=== PATIENT | male | born 1990 | race Hispanic/Latino ===

== ENCOUNTER 2025-01-14 06:16 | Emergency (ER) | payer BC ==
[~2025-01-14] VITALS: Ht 182.9 cm; Wt 88.9 kg
--- NOTE | 2025-01-14 06:37 | ERN ---
ED Note History of Present Illness Stated Complaint: C/O ABSCESS TO LEFT ANKLE; Chief Complaint: Abscess Time Seen by MD: 06:21 Dictation: This is a 34-year-old male who presented to the emergency room complaining of possible abscess to his left ankle. Apparently he had extensive surgery to the left lower leg and has screws and rods which were done in 2004, he stated that on the medial aspect of the left ankle he started developing a little bump and he was concerned that he has screws maybe projecting from his previous surgery periodically he indicated that there would be swelling and some discomfort intermittently. However today he started seeing yellowish pus coming out of the medial area and he was concerned and came into the ER for further evaluation. He has not documented fever but he has woken up sweaty as he described Temperature 99.3 pulse 84 respirations 20 blood pressure 131/83 with a pulse oximetry of 99% on room air Allergies: Coded Allergies: amoxicillin (Unverified Allergy, Unknown, 01/14/25) Past Medical History Past Medical History: No Pertinent History Surgical History: Other Surgical History Other: LEFT ANKLE SX Family History: Negative RN Note Reviewed/Agreed w/PFSH: Yes Review of System Dictation Constitutional: Negative for fever,chills, and weight loss positive for subjective fevers Eyes: Negative for injury, pain,redness, and discharge ENT: Negative for injury,pain or swelling Cardiovascular: Negative for chest pain, palpitations, and edema Respiratory: Negative for shortness of breath, cough, and wheezing, Abdomen/GI: Negative for abdominal pain, nausea, vomiting, diarrhea, and constipation Back: Negative for injury and pain : Negative for injury, bleeding and discharge MS/Extremity: Negative for injury and deformity a small bump and swelling on the medial side of the left ankle Skin: Negative for rash, and discoloration Neuro: Negative for headache, weakness, numbness, tingling, and seizure Psych: Negative for suicide ideation, homicidal ideation, and hallucinations Initial Vital Sign VS Vital Signs Date Time Temp Pulse Resp B/P (MAP) Pulse Ox O2 Delivery O2 Flow Rate FiO2 01/14/25 06:20 99.3 84 20 131/83 99 Room Air 01/14/25 06:35 0 21 Physical Exam Dictation General: awake, alert, NAD Head/Face: Normocephalic, atraumatic Eyes: PERRL, EOMI, vision at baseline ENT: oral cavity clear, TMs clear, no signs of infection Neck: Trachea midline, supple, no nuchal rigidity Cardiovascular: RRR, normal S1/S2, No MRGs, no JVD Respiratory: CTAB, no respiratory distress, No rales or wheezes Abdomen: Soft, non-tender, non-distended, normal bowel sounds, no guarding or rebound. Skin: Warm, dry, normal turgor, no rash MS/Extremity: Pulses equal, no cyanosis, neurovascular intact, FROM, left ankle medial aspect right above the medial malleolus there is a hyperpigmented area which is indurated round about 1 in x 1 in with surrounding hyperpigmented with purulent drainage. I do not appreciate any metallic prosthesis projecting externally. Neuro: COAx4, GCS 15, strength 5/5, CN 2-12 intact, normal cerebellar exam, normal gait, Psych: Normal behavior, mood, and affect normal Extremities-trace edema without any palpable cords, Homans sign is negative Results (Laboratory/Radiology) Laboratory/Radiology Laboratory Tests Test 01/14/25 06:45 White Blood Count 11.2 K/uL (4.8-10.8) H Red Blood Count 4.82 MIL/uL (4.50-6.20) Hemoglobin 12.8 g/dL (14.0-18.0) L Hematocrit 39.2 % (42-54) L Mean Corpuscular Volume 81.3 fL (79-99) Mean Corpuscular Hemoglobin 26.6 pg (27.0-33.0) L Mean Corpuscular Hemoglobin Concent 32.7 g/dL (32.0-36.0) Red Cell Distribution Width 12.5 % (11.0-15.5) Platelet Count 490 K/uL (130-400) H Mean Platelet Volume 10.6 fL (7.5-10.5) H Immature Granulocyte % (Auto) 0.4 % (0-1) Neutrophils (%) (Auto) 47.9 % (40.0-77.0) Lymphocytes (%) (Auto) 39.4 % (21.0-51.0) Monocytes (%) (Auto) 6.9 % (3.0-13.0) Eosinophils (%) (Auto) 5.0 % (0.0-8.0) Basophils (%) (Auto) 0.4 % (0.0-5.0) Neutrophils # (Auto) 5.4 K/uL (1.8-7.7) Lymphocytes # (Auto) 4.4 K/uL (1.0-4.8) Monocytes # (Auto) 0.8 K/uL (0.1-1.0) Eosinophils # (Auto) 0.56 K/uL (0.00-0.70) Basophils # (Auto) 0.05 K/uL (0.00-0.20) Absolute Immature Granulocyte (auto 0.04 K/uL (0-1) Nucleated Red Blood Cells 0.0 % (0.0-0.19) Sodium Level 140 mmol/L (136-145) Potassium Level 3.7 mmol/L (3.5-5.1) Chloride Level 103 mmol/L (101-111) Carbon Dioxide Level 27 mmol/L (21-32) Blood Urea Nitrogen 16 mg/dL (7-18) Creatinine 1.0 mg/dL (0.5-1.3) Glomerular Filtration Rate Calc 101 mL/min (>90) Random Glucose 91 mg/dL (70-105) Total Calcium 9.2 mg/dL (8.5-10.1) Labs Reviewed?: Yes ED Course ED Course Orders Procedure Category Date Status Time Cbc With Differential LAB 01/14/25 Complete 06:32 Basic Metabolic Panel LAB 01/14/25 Complete 06:32 Ankle Comp 3vws Lt RAD 01/14/25 Resulted 06:32 Vital Signs Date Time Temp Pulse Resp B/P (MAP) Pulse Ox O2 Delivery O2 Flow Rate FiO2 01/14/25 07:48 98.8 67 18 125/75 99 Room Air* 0 21 01/14/25 06:35 99.1 88 18 122/56 99 Room Air* 0 21 01/14/25 06:20 99.3 84 20 131/83 99 Room Air We will perform diagnostic labs, advanced imaging and administer medications according to the patient's complaint. Once the results are available, will review and personally interpreted the labs to rule out any acute life- threatening emergency the trach require immediate intervention and treatment. I will then re-evaluate the patient after treatment and diagnostic exams have return to determine whether the patient requires any further testing, can safely be discharged home or need further admission to hospital for additional treatment and evaluation. Medical Decision Making MDM CC; left ankle pain Historian: Patient Comorbidities: None Limitations by social determinants of health: None Differential diagnosis: Hardware displacement, infection, other Vital signs are stable White count shows 11 K, no shift no bands otherwise labs stable X-ray shows hardware intact On clinical exam they hardware appears to be rubbing against the skin. There was no obvious exposed hardware. Mild drainage no purulence no exposed calderon rdware. Neurovascularly intact. Discussed the plan with the patient. He reports that he has follow up scheduled for this Monday back home, since he travels here. We agreed that the hardware is not exposed currently, it is no signs of significant infection, and he can follow up with his orthopedist. We will discharge with the antibiotics and naproxen for pain. DX & DISP Disposition: Discharge Departure Impression: Primary Impression: Painful orthopaedic hardware Condition: Stable Scripts Naproxen (Naproxen) 250 Mg Tablet 1 TAB PO BID for pain for 7 Days, #20 TAB 0 Refills Prov: DELORES BOOTHE DO 01/14/25 Clindamycin HCl (Clindamycin HCl) 300 Mg Capsule 1 CAP PO TID for 7 Days, #21 CAP 0 Refills Prov: DELORES BOOTHE DO 01/14/25 Additional Instructions: Please follow up with your orthopedist as scheduled Monday. The ankle screw appears to be putting pressure on the skin. This will likely need to be fixed surgically. Take naproxen for pain as needed. Avoid putting pressure on the area, i.e. wearing shoes/work boots. I've prescribed clindamycin, which is an antibiotic. Take as prescribed. Please return to the emergency department if you have any concerns. ALMA LEWIS MD Jan 14, 2025 06:37 DELORES BOOTHE DO Jan 14, 2025 07:58
[2025-01-14 06:56] LABS: IMMATURE GRANULOCYTE ABSOLUTE 0.04 K/uL (0-1); NUCLEATED RED BLOOD CELLS 0.0 % (0.0-0.19); PLATELET COUNT (AUTO) 490 K/uL (130-400); RED BLOOD CELL COUNT(AUTO) 4.82 MIL/uL (4.50-6.20); RED CELL DISTRIBUTION WIDTH 12.5 % (11.0-15.5); WHITE BLOOD COUNT (AUTO) 11.2 K/uL (4.8-10.8)
[2025-01-14 07:04] LABS: CREATININE 1.0 mg/dL (0.5-1.3); GLOMERULAR FILTR. RATE CALC 101.0 mL/min (>90); GLUCOSE,RANDOM 91.0 mg/dL (70-105); SODIUM SERUM 140.0 mmol/L (136-145); UREA NITROGEN, BLOOD 16.0 mg/dL (7-18)
--- NOTE | 2025-01-14 07:17 | HMCIMG ---
EXAM: CR right ankle, 4 View. CLINICAL HISTORY: swelling and abscesson medial aspect. h/o screws and marita COMPARISON: None provided. FINDINGS: BONES: Status post open reduction internal fixation of the tibia. JOINTS: The joint spaces appear within normal limits. No dislocation. No radiographic evidence of a joint effusion. SOFT TISSUES: The soft tissues are unremarkable. IMPRESSION: 1. Status post open reduction internal fixation of the tibia. /[place]
[2025-01-14 07:48] VITALS: BP 125/75; PULSE 67; RESP 18; TEMP 98.8; O2SAT 99
[2025-01-14] MEDS ORDERED: NAPR-1196 PO (07:52)
[2025-01-14] MEDS ORDERED: CLIN-141 PO (07:52)
== END 2025-01-14 08:19 | disposition home or self-care (01) ==
LOC: EDH 06:16
DX: T84.84XA Pain due to internal orthopedic prosthetic devices, implants and grafts, initial encounter (principal); Z88.0 Allergy status to penicillin; Y83.2 Surgical operation with anastomosis, bypass or graft as the cause of abnormal reaction of the patient, or of later complication, without mention of misadventure at the time of the procedure; Y92.89 Other specified places as the place of occurrence of the external cause
CPT/HCPCS: 36415; 73610; 80048; 85025; 99283